=== PATIENT | male | born 1960 | race Caucasian/White ===

== ENCOUNTER 2019-03-09 13:49 | Inpatient (IN) | payer OTHER ==
[~2019-03-09] VITALS: Ht 193 cm; Wt 100.7 kg
[2019-03-09 14:23] VITALS: Ht 193 cm; Wt 100.7 kg
[2019-03-09 15:03] LABS: BASOPHIL % 0.6 % (0-2); PLATELET COUNT 296 x10^3mcL (130-400); RED CELL DISTRIBUTION WIDTH 13.6 % (11.5-14.5)
[2019-03-09 15:14] LABS: CALCIUM 8.8 mg/dL (8.5-10.1); CHLORIDE SERUM 107 mmol/L (98-107); CREATININE SERUM 0.9 mg/dL (0.7-1.3); GFR1 > 60 mL/min; GLUCOSE SERUM 110 mg/dL (74-106); POTASSIUM SERUM 4.2 mmol/L (3.5-5.1); SODIUM SERUM 141 mmol/L (136-145)
[2019-03-09 15:18] LABS: ALKALINE PHOSPHATASE 116 U/L (46-116); ALT/SGPT 75 U/L (16-63); AST/SGOT 46 U/L (15-37); BILIRUBIN TOTAL 0.6 mg/dL (0.20-1.00)
--- NOTE | 2019-03-09 15:34 | NUR ---
PT CAME INTO THE ED WITH C/C OF RLQ PAIN SINCE APPROX 9AM TODAY. PT REPORTS NORMAL BOWEL HABITS, BUT STATES "I FEEL LIKE I HAVE TO GO DIARRHEA". UPON PALPATION OF RLQ PT FEELS PAIN. PT DENIES INJURY TO THE AREA. BOWEL SOUNDS PRESENT IN ALL 4 QUADRANTS. PT DENIES N/V OR HAVING A FEVER. PT IS AWAKE, AAOX4, RESP E/U, NAD NOTED. AWAITING MSE.
--- NOTE | 2019-03-09 16:16 | NUR ---
PT TAKEN TO CT VIA [facility] NOTED.
--- NOTE | 2019-03-09 16:27 | NUR ---
PT RETURNED FROM CT LAYING IN GURNEY, AWAKE, AAOX4, RESP E/U, NAD NOTED. PT MEDICATED WITH FLUIDS PER DOCTOR ORDER. PT VERBALIZED UNDERSTANDING OF MEDICATION PRIOR TO ADMINISTRATION. EX AT BEDSIDE.
--- NOTE | 2019-03-09 17:15 | NUR ---
PT REPORTS PAIN HAS INCREASED, BUT DOES NOT WANT PAIN MEDICATION, STATES "I FEEL LIKE I HAVE TO FART".
--- NOTE | 2019-03-09 17:20 | NUR ---
PT REPORTS HE DID NOT TAKE HIS DAILY DOSE OF LISINOPRIL THIS MORNING AND IS CONCERNED ABOUT HIS BLOOD PRESSURE, 158/113. MD AWARE, AWAITING NEW ORDERS.
--- NOTE | 2019-03-09 17:24 | NUR ---
PT MEDICATED PER MED ORDER. PT VERBALIZED UNDERSTANDING OF MEDICATION PRIOR TO ADMINISTRATION.
--- NOTE | 2019-03-09 18:52 | NUR ---
PT AWAKE, AAOX4, RESP E/U, SITTING UP IN GURNEY, SPEAKING IN CLEAR FULL SENTENCES, NAD NOTED.
--- NOTE | 2019-03-09 19:22 | NUR ---
SURGEON DR Monsalve AT BEDSIDE SPEAKING WITH PT REGARDING PLAN OF CARE FOR SURGERY THIS PM.
--- NOTE | 2019-03-09 19:30 | NUR ---
SURGEON, DR. Kulkarni AT BEDSIDE TO DISCUSS SURGERY WITH PT. PT VERBALIZED UNDERSTANDING OF NEED FOR SURGERY AND AGREED TO PLAN OF CARE.
--- NOTE | 2019-03-09 19:33 | NUR ---
PT MEDICATED PER MD ORDER. PT VERBALIZED UNDERSTANDING OF MEDICATION PRIOR TO ADMINISTRATION.
[2019-03-09] MEDS ORDERED: LISINOPRIL40 MG PO (19:53)
--- NOTE | 2019-03-09 19:59 | NUR ---
PT MEDICATED PER MD ORDER. PT VERBALIZED UNDERSTANDING OF MEDICATION PRIOR TO ADMINISTRATION.
--- NOTE | 2019-03-09 20:08 | NUR ---
PER ACID TANK CLEANER RACHAEL, SURGICAL TEAM WILL BE HERE TO GET PT IN 30 MINUTES.
[2019-03-09 20:16] LABS: T3 TOTAL 2.1 ng/mL
--- NOTE | 2019-03-09 20:35 | NUR ---
REPORT GIVEN TO QUALITY CONTROL ASSISTANTTRENTON CHATTERJEE TO ASSUME CARE OF PT.
--- NOTE | 2019-03-09 20:39 | NUR ---
PT VERBALIZED UNDERSTANDING OF PLAN OF CARE FOR SURGERY, SIGNED CONSENT. CONSENT PREVIOUSLY EDUCATED BY SURGEON DR. CHAVEZ.
[2019-03-09 20:40] LABS: CHOLESTEROL/HDL RATIO 5.7
[2019-03-09 20:45] LABS: FREE T4 1.27 ng/dL (0.76-1.46)
--- NOTE | 2019-03-09 20:49 | NUR ---
SYSTEMS TRAINERTRENTON BADILLO TRANSFERRED PT TO SURGERY, VIA GURNEY, ACCOMPANIED BY EX . PT AWAKE, AAOX4, RESP E/U, NAD NOTED UPON LEAVING ED.
[2019-03-09 20:50] LABS: FREE THYROXINE INDEX 4.1 ug/dL (1.4-4.5); T4(THYROXINE) 14.7 ug/dL (4.7-13.3)
[2019-03-10 00:12] VITALS: BP 141/88
--- NOTE | 2019-03-10 00:30 | NUR ---
RECEIVED PT FROM OR, S/P LAP APPY, PT ADMIT FOR APPENDICITIS, PT IS A/O X4, VERBAL RESPONSIVE, ABLE TO TELL WHAT HE NEEDS, LUNG SOUND CLEAR BILATERAL, NO COUGH, NO SOB, PT IS ON 3L/MIN O2 VIA NC. PO2 94%, DENY ANY CHEST PAIN OR DISCOMFORT, BOWEL SOUND ABSCENT AT THIS MOMENT, LAP APPY COVERED WITH 3 BANDAGE. NO BLEEDING OR DRAINAGE NOTED. PEDAL PULSE PRESENT BOTH FEET, NO EDEMA, VILLA ELBOW ERYTHEMA DUE TO PSORIASIS, IV AT RIGHT AC, NO LEAKING, NO INFILTRATION. ALL ADLS ASSIST,ALL NEED MET, CALL LIGHT IN REACH, WILL CONTINUE TO MONITOR.
--- NOTE | 2019-03-10 02:20 | NUR ---
PT AWAKE DENIES PAIN INTACT BANDAID DRESSING TO SURGICAL INCISIONS SITES, NO DISTRESS, NO NAUSEA OR VOMITING, AMBULATES TO THE BATHROOM, ATTENDED NEEDS CONT TO MONITOR.
[2019-03-10 06:34] LABS: CALCIUM 7.5 mg/dL (8.5-10.1); CHLORIDE SERUM 107 mmol/L (98-107); CREATININE SERUM 0.9 mg/dL (0.7-1.3); GFR1 > 60 mL/min; GLUCOSE SERUM 151 mg/dL (74-106); MAGNESIUM 1.6 mg/dL (1.8-2.4); PHOSPHOROUS 2.5 mg/dL (2.5-4.9); POTASSIUM SERUM 4.3 mmol/L (3.5-5.1); SODIUM SERUM 139 mmol/L (136-145)
[2019-03-10 06:36] VITALS: BP 111/78
[2019-03-10 06:43] LABS: PLATELET COUNT 258 x10^3mcL (130-400); RED CELL DISTRIBUTION WIDTH 13.8 % (11.5-14.5)
--- NOTE | 2019-03-10 06:51 | NUR ---
PT AMBULATES TO THE BATHROOM NOTED SLIGHT BLEEDING TO ONE OF THE SURG INCISION SITE, REINFORCED, DENIES PAIN SURG INCISION TENDER TO TOUCH WITH LIGHT PALPITATION, NO FURTHER BLEEDING, OFFERED PAIN MEDS PT REFUSED, IV ATB ADMIN ORDERED, NO ADV REACTION.
[2019-03-10 07:02] LABS: BASOPHIL % 0 % (0-2)
--- NOTE | 2019-03-10 07:10 | NUR ---
RECEIVED BEDSIDE REPORT FROM OD GRINDER OPERATOR NURSE AT THIS TIME. PATIENT RESTING COMFORTABLY IN BED. NO APPARENT DISTRESS OR DISCOMFORT NOTED. BREATHING EVEN AND UNLABORED. NO RESPIRATORY DISTRESS OR DISCOMFORT NOTED. PATIENT DENIES CHEST PAIN/PRESSURE AT THIS TIME. S/P LAP APPY X3 INCISION WITH BANDAIDS, CDI. ALL QUESTIONS AND CONCERNS ADDRESSED. ALL NEEDS ATTENDED TO. WILL CONTINUE TO MONITOR
[2019-03-10 09:10] VITALS: BP 106/67
--- NOTE | 2019-03-10 10:00 | NUR ---
PATIENT C/O A SORE THROAT AT THIS TIME. PATIENT GIVEN A THROAT LOZENGE (PRN) AT THIS TIME. NO APPARENT ADVERSE EFFECTS NOTED. ALL NEEDS ATTENDED TO. WILL CONTINUE TO MONITOR
[2019-03-10] MEDS ORDERED: MOT800 PO (11:34)
[2019-03-10 12:55] VITALS: BP 106/67
--- NOTE | 2019-03-10 13:00 | NUR ---
PATIENT SITTING UP IN BED EATING LUNCH AT THIS TIME. PATIENT TOLERATING DIET WELL. NO APPARENT DISTRESS OR DISCOMFORT NOTED. ALL NEEDS ATTENDED TO. WILL CONTINUE TO MONITOR
[2019-03-10 16:50] VITALS: BP 110/72
== END 2019-03-10 18:24 | disposition home or self-care (01) | DRG 343 ==
LOC: ED 13:49 → MU 19:21
PROVIDERS: Surgery; ADMIT Internal Medicine
PROC: 0WQF0ZZ Repair Abdominal Wall, Open Approach (ICD-10-PCS; 2019-03-09)
PROC: 0DTJ4ZZ Resection of Appendix, Percutaneous Endoscopic Approach (ICD-10-PCS; principal; 2019-03-09 20:30)
DX: K35.80 Unspecified acute appendicitis (principal); I10 Essential (primary) hypertension; Z79.899 Other long term (current) drug therapy; E78.5 Hyperlipidemia, unspecified
CPT/HCPCS: 83880; 84439; G0378; J0330; J1170; J2405; J2543; J2704; J2710; J3010; J3490; J7030; J7120; Q0092